=== PATIENT | male | born 1975 | race Hispanic/Latino ===

== ENCOUNTER 2018-05-31 03:02 | Emergency (ER) | payer OTHER ==
[~2018-05-31] VITALS: Ht 180.3 cm; Wt 90.7 kg
--- OUTSIDE RECORDS SUMMARY | 2018-05-31 03:05 | XMS REPORT | Summary of Care ---
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(Confirmed ) Hyperlipidemia, Active mixed(Confirmed) Obesity(Confirmed) Active Annual physical Active exam(Confirmed) Elevated Active BP(Confirmed) Lipid Active screening(Confirmed) Allergies, Adverse Reactions, Alerts Substance Reaction Severity Status NKDA Active Medications Invokana 300 mg oral tablet 300 mg=1 tab, PO, Daily, # 30 tab, 1 Refill(s), Pharmacy: [place] [id number] Start Date: 10/30/17 Stop Date: 12/29/17 Status: Ordered Results No data available for this section Immunizations No data available for this section Procedures No data available for this section Social History Social History Type Response Substance Abuse Use: None. Alcohol Current, Type Beer. Frequency: 1-2 times per month. Smoking Status Never smoker; Exposure to Tobacco Smoke None; Cigarette Smoking Last 365 Days Unable to obtain; Reg Smoking Cessation Counseling No entered on: 12/21/16 Assessment and Plan No data available for this section
--- OUTSIDE RECORDS SUMMARY | 2018-05-31 03:05 | XMS REPORT | Continuity of Care Document ---
Author Author [facility] Interface Address Unknown Phone Unavailable Problems Problem Status Onset Date Classification Date Reported Comments Source Benign essential HTN Active Problem 11/28/2017 [facility] Low serum vitamin D Active Problem 11/28/2017 [facility] DM type 2 with diabetic peripheral neuropathy Active Problem 11/28/2017 [facility] Hyperlipidemia, mixed Active Problem 11/28/2017 [facility] Obesity Active Problem 11/28/2017 [facility] Elevated BP Active Problem 11/28/2017 [facility] Lipid screening Active Problem 11/28/2017 [facility] Medications Medication Details Route Status Patient Instructions Ordering Provider Order Date Source DME Addition #2 See Instructions, PATIENT NEEDS LANCETS TO CHECK HIS SUGARS BID, # 200 ea, 10 Refill(s) Active 11/25/2017 [facility] DME Addition #1 See Instructions, PATIENT NEEDS GLUCOSE TEST STRIPS TO CHECK HIS SUGARS BID, # 200 ea, 10 Refill(s) Active 11/25/2017 [facility] gemfibrozil 600 mg oral tablet 600 mg=1 tab, PO, BID, # 180 tab, 1 Refill(s), [facility]acy[facility] Active 11/25/2017 [facility] lisinopril 10 mg oral tablet 10 mg=1 tab, PO, Daily, # 90 tab, 1 Refill(s), [facility]acy: [facility] Active 11/25/2017 [facility] Metformin hydrochloride 1000 MG Oral Tablet 1,000 mg=1 tab, PO, BID, # 180 tab, 1 Refill(s), [facility]acy: [facility] Active 11/25/2017 [facility] Glipizide 10 MG Oral Tablet 10 mg=1 tab, PO, BID-Before Meals, # 180 tab, 1 Refill(s), [facility]acy: [facility] Active 11/25/2017 [facility] canagliflozin 300 MG Oral Tablet [Invokana] 300 mg=1 tab, PO, Daily, # 90 tab, 1 Refill(s), [facility]acy: [facility] Active 11/25/2017 [facility] canagliflozin 300 MG Oral Tablet [Invokana] 300 mg=1 tab, PO, Daily, # 30 tab, 1 Refill(s), Pharmacy: [id number] Active 10/30/2017 [facility] Allergies, Adverse Reactions, Alerts Substance Category Reaction Severity Reaction type Status Date Reported Comments Source Immunizations Immunization Date Given Site Status Last Updated Comments Source Results Order Name Results Value Reference Range Date Interpretation Comments Source Vital Signs Vital Sign Value Date Comments Source Systolic (mm Hg) 123 11/25/2017 [facility] Diastolic (mm Hg) 83 11/25/2017 [facility] Height 180.34 cm 11/25/2017 [facility] BMI Calculated 29.77 11/25/2017 [facility] Weight 96.818 11/25/2017 [facility] Respitory Rate 14 11/25/2017 [facility] Temperature Oral (F) 99.5 F 11/25/2017 [facility] Heart Rate 96 11/25/2017 [facility] Encounters Location Location Details Encounter Type Encounter Number Reason For Visit Attending Provider ADM Date DC Date Status Source Outpatient [id number] MANDA STEINBERG 12/13/2016 Active [facility] Outpatient [id number] MANDA STEINBERG 12/21/2016 Active [facility] Outpatient [id number] MANDA STEINBERG 01/03/2017 Active [facility] Phone Message [id number] 10/30/2017 11/01/2017 [facility] Outpatient [id number] MANDA STEINBERG 11/25/2017 Active [facility] Outpatient [id number] Manda Moreno 11/25/2017 11/26/2017 [facility] Outpatient [id number] MANDA STEINBERG 02/24/2018 Active [facility] Outpatient [id number] MANDA STEINBERG 06/06/2018 Active [facility] Procedures Procedure Code Date Perfomer Comments Source
--- OUTSIDE RECORDS SUMMARY | 2018-05-31 03:05 | XMS REPORT | Summary of Care ---
Author Author [facility] Organization [facility] Address Unknown Phone Unavailable Encounter HQ Natasha(FIN) [id number] Date(s): 11/25/17 - 11/25/17 [facility] [address], [address] [place] [address]- [phone] Discharge Disposition: Home or Self Care Attending Physician: Manda Tyler MD Vital Signs Most recent to 1 oldest [Reference Range]: Height 180.34 cm (11/25/17 1:11 PM) Temperature Oral 99.5 DegF [96.4-99.1 DegF] *HI* (11/25/17 1:11 PM) Blood Pressure 123/83 mmHg [90-140/60-90 mmHg] (11/25/17 1:11 PM) Respiratory Rate 14 BRMIN [14-20 BRMIN] (11/25/17 1:11 PM) Peripheral Pulse 96 bpm Rate [60-100 bpm] (11/25/17 1:11 PM) Weight 96.818 kg (11/25/17 1:11 PM) Body Mass Index 29.77 m2 (11/25/17 1:11 PM) Problem List Condition Effective Dates Status Health Status Informant Benign essential Active HTN(Confirmed) Low serum vitamin Active D(Confirmed) 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(Confirmed ) Hyperlipidemia, Active mixed(Confirmed) Obesity(Confirmed) Active Annual physical Active exam(Confirmed) Elevated Active BP(Confirmed) Lipid Active screening(Confirmed) Allergies, Adverse Reactions, Alerts Substance Reaction Severity Status NKDA Active Medications DME Addition #1 See Instructions, PATIENT NEEDS GLUCOSE TEST STRIPS TO CHECK HIS SUGARS BID, # 200 ea, 10 Refill(s) Start Date: 11/25/17 Status: Ordered DME Addition #2 See Instructions, PATIENT NEEDS LANCETS TO CHECK HIS SUGARS BID, # 200 ea, 10 Re fill(s) Start Date: 11/25/17 Status: Ordered gemfibrozil 600 mg oral tablet 600 mg=1 tab, PO, BID, # 180 tab, 1 Refill(s), Pharmacy: [facility] Start Date: 11/25/17 Stop Date: 05/24/18 Status: Ordered glipiZIDE 10 mg oral tablet 10 mg=1 tab, PO, BID-Before Meals, # 180 tab, 1 Refill(s), Pharmacy: [facility] Start Date: 11/25/17 Stop Date: 05/24/18 Status: Ordered Invokana 300 mg oral tablet 300 mg=1 tab, PO, Daily, # 90 tab, 1 Refill(s), Pharmacy: [facility] Start Date: 11/25/17 Stop Date: 05/24/18 Status: Ordered lisinopril 10 mg oral tablet 10 mg=1 tab, PO, Daily, # 90 tab, 1 Refill(s), Pharmacy: & Pharmacy Start Date: 11/25/17 Stop Date: 05/24/18 Status: Ordered metFORMIN 1000 mg oral tablet 1,000 mg=1 tab, PO, BID, # 180 tab, 1 Refill(s), Pharmacy: & Pharmacy Start Date: 11/25/17 Stop Date: 05/24/18 Status: Ordered Results No data available for [...] Reg Smoking Cessation Counseling No entered on: 11/25/17 Assessment and Plan No data available for this section
[2018-05-31] MEDS ORDERED: INSULIN REGULAR, HUMAN 100 UNIT/1 ML 3ML VIAL SQ STA (03:37)
[2018-05-31] MEDS ORDERED: SODIUM CHLORIDE 0.9% 1000ML 1,000 ML IV SCH (03:45)
[2018-05-31] MEDS ORDERED: SODIUM CHLORIDE 0.9% 1000ML 1,000 ML IV ONE (04:45)
--- NOTE | 2018-05-31 04:48 | Diagnostic Imaging Report ---
EXAM: CT Abdomen and Pelvis WITHOUT contrast INDICATION: Left-sided flank/back pain ^[id number] ^[id number] COMPARISON: None. TECHNIQUE: Abdomen and pelvis were scanned utilizing a multidetector helical scanner from the lung base to the pubic symphysis without administration of IV contrast. Absence of intravenous contrast decreases sensitivity for detection of focal lesions and vascular pathology. Coronal and sagittal reformations were obtained. Routine protocol was performed. IV CONTRAST: None ORAL CONTRAST: Water COMPLICATIONS: None RADIATION DOSE: Total DLP: 851.8 mGy*cm Estimated effective dose: (DLP x 0.015 x size factor) mSv Dose modulation, iterative reconstruction, and/or weight based adjustment of the mA/kV was utilized to reduce the radiation dose to as low as reasonably achievable. FINDINGS: LINES and TUBES: None. LOWER THORAX: Unremarkable HEPATOBILIARY: Hepatic steatosis. No focal hepatic lesions. No biliary ductal dilation. GALLBLADDER: Contracted. No radio-opaque stones or sludge. No wall thickening. SPLEEN: No splenomegaly. PANCREAS: No focal masses or ductal dilatation. ADRENALS: No adrenal nodules KIDNEYS/URETERS: Duplex left renal collecting system. Mild bilateral perinephric stranding. No hydronephrosis. No cystic or solid mass lesions. No renal or ureteral stones. GI TRACT: No abnormal distention, wall thickening, or evidence of bowel obstruction. Appendix is normal. PELVIC ORGANS/BLADDER: A 2 mm punctate calculus in the midline dependent bladder may represent recently passed stone in the setting of left back/flank pain (sagittal image 62). LYMPH NODES: No lymphadenopathy. VESSELS: Unremarkable. PERITONEUM / RETROPERITONEUM: No free air or fluid. BONES: Unremarkable for age. SOFT TISSUES: Fat-containing left inguinal hernia without soft tissue stranding. IMPRESSION: 1. No acute abnormalities in the abdomen or pelvis. 2. Punctate 2 mm stone in the bladder, possibly recently passed in the setting of left-sided flank/back pain. 3. Duplex left renal collecting system. No hydronephrosis. 4. Hepatic steatosis. 5. Fat-containing indirect left inguinal hernia without inflammation. Signed by: DR. Nick Burris MD on 05/31/2018 4:44 AM
[2018-05-31 05:29] VITALS: BP 123/76
== END 2018-05-31 05:33 | disposition home or self-care (01) ==
LOC: FSED 03:02
DX: M54.5 Low back pain (principal); R10.32 Left lower quadrant pain; R31.9 Hematuria, unspecified; N20.0 Calculus of kidney; E11.65 Type 2 diabetes mellitus with hyperglycemia; I10 Essential (primary) hypertension
CPT/HCPCS: 74176; 80048; 81003; 82948; 85025; 99284; J1817; J7030